=== PATIENT | female | born 1995 | race African-American/Black ===

== ENCOUNTER 2017-05-02 23:48 | Emergency (ER) | payer MEDICAID, OTHER ==
[~2017-05-02] VITALS: Ht 170.2 cm; Wt 132.4 kg
[2017-05-02 23:49] VITALS: BP 130/82
[2017-05-03 00:15] LABS: HCG UR LOT HCG7030192
[2017-05-03 00:20] LABS: PATH.CAST-FLAG NOT PRESENT; SPERM-FLAG NOT PRESENT; SRC-FLAG NOT PRESENT; XTAL-FLAG NOT PRESENT; YLC-FLAG NOT PRESENT
[2017-05-03 00:22] LABS: HCG UR OBC PASS
== END 2017-05-03 01:02 | disposition home or self-care (01) ==
LOC: ED 23:59
DX: N30.90 Cystitis, unspecified without hematuria (principal); F12.10 Cannabis abuse, uncomplicated
CPT/HCPCS: 81001; 81025; 87077; 87086; 87186; 99284